=== PATIENT | female | born 1960 | race Caucasian/White ===

== ENCOUNTER → 2016-07-12 | Outpatient (CLI) | payer BC | LOC: MAMO 15:08 | DX: C90.00 Multiple myeloma not having achieved remission (principal); C43.9 Malignant melanoma of skin, unspecified; D64.9 Anemia, unspecified ==

== ENCOUNTER → 2016-08-09 | Outpatient (CLI) | payer BC | LOC: RAD 11:00 | DX: C90.00 Multiple myeloma not having achieved remission (principal); C43.9 Malignant melanoma of skin, unspecified; D64.9 Anemia, unspecified | CPT/HCPCS: 77075 ==

== ENCOUNTER → 2016-09-05 | Outpatient (CLI) | payer BC | LOC: LAB 09:13 | DX: N17.9 Acute kidney failure, unspecified (principal) | CPT/HCPCS: 82570; 84156 ==

== ENCOUNTER → 2021-06-21 | Outpatient (CLI) | payer OTHER | LOC: KOH-I 13:51 | DX: J98.8 Other specified respiratory disorders (principal); J98.11 Atelectasis | CPT/HCPCS: 71046 ==

== ENCOUNTER → 2021-06-23 | Outpatient (CLI) | payer OTHER | LOC: KOH-I 15:45 | DX: J98.11 Atelectasis (principal) | CPT/HCPCS: 71250 ==